=== PATIENT | female | born 1930 | race Caucasian/White ===

== ENCOUNTER 2016-10-17 20:40 | Inpatient (IN) | payer OTHER ==
[~2016-10-17] VITALS: Ht 162.6 cm; Wt 95.8 kg
[~2016-10-17 20:40] MED LIST: AGGRENOX1 CAPSULE PO; ALLOPURINOL100 MG PO; AMLODIPINE BESY10 MG PO; ARICEPT10 MG PO; CALCIUM600 M1 PO; CLONIDINE HCL0.1 MG PO; COZAAR100 MG PO; DULCOLAX10 MG PR; ERGOCALCIF50000 UNIT PO; LEVEMIR FL100 UNIT/1 SC; NITROSTAT0.4 MG SL; NOVOLOG PE100 UNITS/ SC; PHILLIPS'400 MG/5 M PO; PROTONIX40 MG PO; TRAMADOL HCL50 MG PO; TRANDATE100 MG PO; TRAZODONE HCL50 MG PO; TYLENOL EXTRA500 MG PO; WELCHOL625 MG PO; WELLBUTRIN SR100 MG PO
[2016-10-17 22:54] LABS: BASOPHIL COUNT 0.1 K/uL (0-0.1); EOSINOPHIL COUNT 0.2 K/uL (0-0.3); HEMATOCRIT 36.7 % (36.0-46.0); IMMATURE GRANULOCYTE (%) 0.4 % (0.0-0.7); INSTRUMENT ABS NEUTROPHIL CT 7.2 K/uL; LYMPHOCYTE COUNT 1.5 K/uL (1.0-2.8); MCH 29.4 PG (29.0-34.0); MCV 89.3 FL (83-99); MONOCYTE COUNT 0.7 K/uL (0-0.8); NEUTROPHIL (%) 74.5 % (45-76); NEUTROPHIL COUNT 7.2 K/uL (1.8-6.4); PLATELET COUNT 266 K/uL (156-360); RBC DIS.WIDTH-CV 13.3 % (11.8-14.6); RBC DIS.WIDTH-SD 43.8 % (39-53); RED BLOOD COUNT 4.11 M/uL (3.80-5.20); WHITE BLOOD COUNT 9.7 K/uL (4.1-10.2)
[2016-10-17 23:07] LABS: CHLORIDE 105 mEq/L (99-109); SODIUM 140 mEq/L (136-147)
[2016-10-17 23:09] LABS: GLUCOSE 88 mg/dL (70-99)
[2016-10-17 23:10] LABS: ANION GAP 11 MEQ/L (2-14)
[2016-10-17 23:11] LABS: TOTAL BILIRUBIN 0.3 mg/dL (0.0-1.0)
[2016-10-17 23:12] LABS: ALKALINE PHOSPHATASE 68 IU/L (3-129)
[2016-10-17 23:13] LABS: GFR ESTIMATE (CALCULATED) 20 mL/min/
[2016-10-17 23:14] LABS: UREA NITROGEN (BUN) 31 mg/dL (9-23)
[2016-10-17 23:15] LABS: TROP-I INTERPRETATION NEGATIVE; TROPONIN-I 0.02 ng/mL (0.0-0.30)
[2016-10-18 00:10] LABS: ADD MIUA? YES; BILIRUBIN NEGATIVE; BLOOD NEGATIVE; COLOR STRAW ((YELLOW)); GLUCOSE (STRIP) 50; KETONES NEGATIVE; LEUKOCYTES NEGATIVE; NITRITE NEGATIVE; PROTEIN (STRIP) >=500; SPECIFIC GRAVITY 1.011 (1.000-1.030); UROBILINOGEN 0.2 MG/DL (0.2-1.0)
[2016-10-18 00:15] LABS: BACTERIA RARE /HPF; EPITHELIAL CELLS RARE /HPF; MUCUS TRACE /LPF; RED BLOOD CELLS 0-5 /HPF (0-5); UCUL ADDED? NO; WHITE BLOOD CELLS 0-5 /HPF (0-5)
[2016-10-18] MEDS ORDERED: CLOPIDOGREL75 MG PO (04:05)
[2016-10-18 04:47] LABS: HDL CHOLESTEROL 47 MG/DL (Desirable>=50); LDL CHOLESTEROL 153 mg/dL (Desirable<100); NON-HDL CHOLESTEROL 186 mg/dL (Desirable<160); TOTAL CHOLESTEROL 233 mg/dL (Desirable<200); TRIGLYCERIDES 166 MG/DL (Normal: <150)
[2016-10-18 04:54] VITALS: BP 188/77
[2016-10-18 08:29] LABS: POINT-OF-CARE METER ID UU14162513
[2016-10-18] MEDS ORDERED: BACITRACIN28.4 GM TP (08:42)
[2016-10-18] MEDS ORDERED: CORTIZONE-10 PL57 GM TP (08:43)
[2016-10-18] MEDS ORDERED: NORVASC5 MG PO (08:45)
[2016-10-18] MEDS ORDERED: WELLBUTRIN SR150 MG PO (08:46)
[2016-10-18] MEDS ORDERED: CLONIDINE HCL0.1 MG PO (08:46)
[2016-10-18] MEDS ORDERED: LABETALOL HCL300 MG PO (08:46)
[2016-10-18 10:05] VITALS: BP 170/85
[2016-10-18 12:28] LABS: POINT-OF-CARE METER ID UU14162513
[2016-10-18 13:53] VITALS: BP 168/69
[2016-10-18 16:52] VITALS: BP 133/72
[2016-10-18 17:17] LABS: POINT-OF-CARE METER ID UU13113700
[2016-10-18 20:57] LABS: POINT-OF-CARE METER ID UU13113700
[2016-10-18 21:00] VITALS: BP 145/63
[2016-10-19 04:47] VITALS: BP 144/67
[2016-10-19 05:51] LABS: ANION GAP 10 MEQ/L (2-14); CHLORIDE 104 MEQ/L (99-109); GFR ESTIMATE (CALCULATED) 20 mL/min/; POTASSIUM 4.2 MEQ/L (3.7-5.4); SAMPLE HEMOLYSIS CHECK 0; SAMPLE ICTERIC CHECK 0; SAMPLE LIPEMIA CHECK 0; SODIUM 139 MEQ/L (136-147); UREA NITROGEN (BUN) 32 mg/dL (9-23)
[2016-10-19 05:59] LABS: GLUCOSE 205 mg/dL (70-99)
[2016-10-19 06:22] LABS: EOSINOPHIL (%) 3.1 % (0-5); EOSINOPHIL COUNT 0.2 K/uL (0-0.3); HEMATOCRIT 35.8 % (36.0-46.0); IMMATURE GRANULOCYTE (%) 0.3 % (0.0-0.7); INSTRUMENT ABS NEUTROPHIL CT 3.4 K/uL; LYMPHOCYTE COUNT 1.7 K/uL (1.0-2.8); MCH 29.3 PG (29.0-34.0); MCHC 32.4 G/DL (30.0-36.0); MCV 90.4 FL (83-99); MEAN PLAT.VOLUME 10.2 uM^3 (9.5-12.4); MONOCYTE (%) 8.2 % (3-12); MONOCYTE COUNT 0.5 K/uL (0-0.8); NEUTROPHIL COUNT 3.4 K/uL (1.8-6.4); PLATELET COUNT 244 K/uL (156-360); RBC DIS.WIDTH-CV 13.6 % (11.8-14.6); RBC DIS.WIDTH-SD 45.4 % (39-53); RED BLOOD COUNT 3.96 M/uL (3.80-5.20)
[2016-10-19 06:30] LABS: WHITE BLOOD COUNT 5.8 K/uL (4.1-10.2)
[2016-10-19 08:18] LABS: Estimated Average Glucose 235 mg/dL (70-123); HEMOGLOBIN A1c (GLYCOHEMOGLOB) 9.8 % HGB (Below 5.7)
[2016-10-19 08:49] VITALS: BP 134/72
[2016-10-19] MEDS ORDERED: ASPIRIN81 M2 PO (11:29)
[2016-10-19 11:54] VITALS: BP 156/64
[2016-10-19 12:14] LABS: POINT-OF-CARE METER ID UU13113700
== END 2016-10-19 15:09 | DRG 305 ==
LOC: EME 20:40 → EDOF 10-18 02:56 → 5WEST 10-18 04:24
PROVIDERS: Emergency Medicine; Hospitalist
DX: I16.0 Hypertensive urgency (principal); I12.9 Hypertensive chronic kidney disease with stage 1 through stage 4 chronic kidney disease, or unspecified chronic kidney disease; E11.22 Type 2 diabetes mellitus with diabetic chronic kidney disease; N18.4 Chronic kidney disease, stage 4 (severe); Z79.4 Long term (current) use of insulin; F03.90 Unspecified dementia, unspecified severity, without behavioral disturbance, psychotic disturbance, mood disturbance, and anxiety; E78.5 Hyperlipidemia, unspecified; I69.391 Dysphagia following cerebral infarction; I69.351 Hemiplegia and hemiparesis following cerebral infarction affecting right dominant side; R13.10 Dysphagia, unspecified; G89.29 Other chronic pain; F32.9 Major depressive disorder, single episode, unspecified; M54.9 Dorsalgia, unspecified; K21.9 Gastro-esophageal reflux disease without esophagitis
CPT/HCPCS: 70450; 71010; 80048; 80053; 80061; 81003; 82948; 83036; 84484; 85025; 93005; 99281; 99285; J0360; J1644; J1815

== ENCOUNTER 2016-12-31 20:45 | Inpatient (IN) | payer OTHER ==
[~2016-12-31] VITALS: Ht 162.6 cm; Wt 84.0 kg
[~2016-12-31 20:45] MED LIST changes: +ASPIRIN81 M2 PO; +BACITRACIN28.4 GM TP; +CLOPIDOGREL75 MG PO; +CORTIZONE-10 PL57 GM TP; +LABETALOL HCL300 MG PO; +NORVASC5 MG PO; +WELLBUTRIN SR150 MG PO
[2016-12-31 21:48] LABS: HEMATOCRIT 37.7 % (36.0-46.0); MCH 29.1 PG (29.0-34.0); MCHC 31.8 G/DL (30.0-36.0); MCV 91.5 FL (83-99); MEAN PLAT.VOLUME 10.1 uM^3 (9.5-12.4); PLATELET COUNT 237 K/uL (156-360); RBC DIS.WIDTH-CV 15.5 % (11.8-14.6); RBC DIS.WIDTH-SD 51.8 % (39-53); RED BLOOD COUNT 4.12 M/uL (3.80-5.20); WHITE BLOOD COUNT 8.1 K/uL (4.1-10.2)
[2016-12-31 22:04] LABS: CHLORIDE 103 mEq/L (99-109); POTASSIUM 3.8 mEq/L (3.7-5.4); SODIUM 140 mEq/L (136-147)
[2016-12-31 22:06] LABS: GLUCOSE 151 mg/dL (70-99)
[2016-12-31 22:08] LABS: ANION GAP 10 MEQ/L (2-14)
[2016-12-31 22:10] LABS: GFR ESTIMATE (CALCULATED) 14 mL/min/
[2016-12-31 22:11] LABS: UREA NITROGEN (BUN) 33 mg/dL (9-23)
[2017-01-01 01:53] LABS: CHLORIDE 107 mEq/L (99-109); POTASSIUM 3.7 mEq/L (3.7-5.4); SODIUM 141 mEq/L (136-147)
[2017-01-01 01:55] LABS: GLUCOSE 138 mg/dL (70-99)
[2017-01-01] MEDS ORDERED: LEVEMIR FL100 UNIT/1 SC (01:55)
[2017-01-01] MEDS ORDERED: LO-DOSE ASPIRIN81 M2 PO (01:55)
[2017-01-01 01:56] LABS: ANION GAP 9 MEQ/L (2-14)
[2017-01-01 01:57] LABS: TOTAL BILIRUBIN 0.4 mg/dL (0.0-1.0)
[2017-01-01] MEDS ORDERED: NORVASC2.5 MG PO (01:58)
[2017-01-01 01:59] LABS: ALKALINE PHOSPHATASE 62 IU/L (3-129); GFR ESTIMATE (CALCULATED) 15 mL/min/
[2017-01-01 02:00] LABS: UREA NITROGEN (BUN) 31 mg/dL (9-23)
[2017-01-01] MEDS ORDERED: FLEET ENEMA-AD118 ML PR (02:00)
[2017-01-01] MEDS ORDERED: GLUCAGON1 MG IM (02:00)
[2017-01-01] MEDS ORDERED: TYLENOL REGULA325 MG PO (02:01)
[2017-01-01 04:16] LABS: HDL CHOLESTEROL 47 MG/DL (Desirable>=50); LDL CHOLESTEROL 172 mg/dL (Desirable<100); NON-HDL CHOLESTEROL 206 mg/dL (Desirable<160); TOTAL CHOLESTEROL 253 mg/dL (Desirable<200); TRIGLYCERIDES 170 MG/DL (Normal: <150)
[2017-01-01 07:11] LABS: Estimated Average Glucose 186 mg/dL (70-123); HEMOGLOBIN A1c (GLYCOHEMOGLOB) 8.1 % HGB (Below 5.7)
[2017-01-01 07:50] LABS: INTACT PARATHYROID HORMONE 6 pg/mL (10-69)
[2017-01-01 08:37] LABS: POINT-OF-CARE METER ID UU13113747
[2017-01-01 10:38] VITALS: BP 205/98
[2017-01-01 11:35] VITALS: BP 198/100
[2017-01-01 12:40] LABS: POINT-OF-CARE METER ID UU13113747
[2017-01-01 13:35] VITALS: BP 155/106
[2017-01-01 16:59] VITALS: BP 150/82
[2017-01-02 02:11] VITALS: BP 173/86
[2017-01-02 04:17] VITALS: BP 164/81
[2017-01-02 05:27] LABS: POINT-OF-CARE METER ID UU14188625
[2017-01-02 08:28] VITALS: BP 152/88
[2017-01-02 11:29] VITALS: BP 138/69
[2017-01-02 12:13] LABS: HEMATOCRIT 38.6 % (36.0-46.0); MCH 30.1 PG (29.0-34.0); MCHC 32.9 G/DL (30.0-36.0); MCV 91.5 FL (83-99); MEAN PLAT.VOLUME 10.1 uM^3 (9.5-12.4); PLATELET COUNT 232 K/uL (156-360); RBC DIS.WIDTH-CV 15.6 % (11.8-14.6); RBC DIS.WIDTH-SD 52.1 % (39-53); RED BLOOD COUNT 4.22 M/uL (3.80-5.20); WHITE BLOOD COUNT 6.6 K/uL (4.1-10.2)
[2017-01-02 12:18] LABS: POINT-OF-CARE METER ID UU13113717
[2017-01-02 12:37] LABS: ALKALINE PHOSPHATASE 64 IU/L (3-129); ANION GAP 10 MEQ/L (2-14); CHLORIDE 107 MEQ/L (99-109); GFR ESTIMATE (CALCULATED) 21 mL/min/; GLUCOSE 158 mg/dL (70-99); POTASSIUM 3.8 MEQ/L (3.7-5.4); SAMPLE HEMOLYSIS CHECK 0; SAMPLE ICTERIC CHECK 0; SAMPLE LIPEMIA CHECK 0; SODIUM 142 MEQ/L (136-147); TOTAL BILIRUBIN 0.7 MG/DL (0.0-1.0); UREA NITROGEN (BUN) 21 mg/dL (9-23)
== END 2017-01-02 17:55 | DRG 305 ==
LOC: EME → EDBD 20:45 → EME 20:45 → EDOF 01-01 01:10 → 5SOUTH 01-01 16:41
PROVIDERS: Internal Medicine
DX: I16.1 Hypertensive emergency (principal); N17.9 Acute kidney failure, unspecified; S00.03XA Contusion of scalp, initial encounter; W18.30XA Fall on same level, unspecified, initial encounter; Y92.129 Unspecified place in nursing home as the place of occurrence of the external cause; E86.0 Dehydration; E83.52 Hypercalcemia; I69.351 Hemiplegia and hemiparesis following cerebral infarction affecting right dominant side; F03.90 Unspecified dementia, unspecified severity, without behavioral disturbance, psychotic disturbance, mood disturbance, and anxiety; R13.10 Dysphagia, unspecified; E11.22 Type 2 diabetes mellitus with diabetic chronic kidney disease; I12.9 Hypertensive chronic kidney disease with stage 1 through stage 4 chronic kidney disease, or unspecified chronic kidney disease; N18.3 Chronic kidney disease, stage 3 (moderate); E78.5 Hyperlipidemia, unspecified; F32.9 Major depressive disorder, single episode, unspecified; E66.9 Obesity, unspecified; K21.9 Gastro-esophageal reflux disease without esophagitis; Z79.4 Long term (current) use of insulin; Z79.82 Long term (current) use of aspirin; Z68.31 Body mass index [BMI] 31.0-31.9, adult; Z79.02 Long term (current) use of antithrombotics/antiplatelets; Z51.5 Encounter for palliative care; Z66 Do not resuscitate
CPT/HCPCS: 70450; 70486; 71010; 72125; 80048; 80053; 80061; 82330; 82948; 83036; 83970; 85027; 92523 GN; 93005; 93880; 99281; 99285; J1644; J1815; J7030; S0028